=== PATIENT | male | born 1950 | race Caucasian/White ===

== ENCOUNTER → 2017-08-13 | Outpatient (CLI) | payer MEDICARE, OTHER ==
[~2017-08-13] MED LIST: ALLOPURINOL 30300 M2 PO; ASPIRIN325 PO; BYSTOLIC 5 MG5 M1 PO; FLOMAX0.4 MG PO; HYDROCHLOROTHIA25 M2 PO; IBUPROFEN 400400 M1 PO; KEFLEX500 MG PO; LIPITOR 20 MG T20 M1 PO; LISINOPRIL10 MG PO; NITROGLYCERIN0.4 MG SUBLING; NORVASC5 MG PO; PLAVIX 75 MG TA75 M1 PO; POTASSIUM20 PO
[2017-08-13 09:36] LABS: ABSOLUTE EOSINOPHILS 0.4 thou/uL (0.0-0.7); ABSOLUTE LYMPHOCYTES 1.2 thou/uL (0.8-5.3); ABSOLUTE MONOCYTES 0.5 thou/uL (0.0-1.2); ABSOLUTE NEUTROPHILS 4.2 thou/uL (1.6-8.1); BASOPHILS 0.5 %; EOSINOPHILS 5.9 %; HEMATOCRIT 42.1 % (42.0-52.0); HEMOGLOBIN 14.6 gm/dL (14.0-18.0); LYMPHOCYTES 19.1 %; MCH 29.9 pg (26.0-34.0); MCHC 34.7 g/dL (28.0-37.0); MCV 86.2 fL (80.0-100.0); MPV 7.7 fl. (7.2-11.1); NUCLEATED RBCS 0 /100WBC; PLATELET COUNT* 167 thou/uL (150-400); POLYS 66.5 %; RBC 4.88 mil/uL (4.50-6.00); RDW-CV 13.9 % (10.5-14.5); WBC 6.3 thou/uL (4.0-11.0)
[2017-08-13 10:13] LABS: ALBUMIN 3.9 g/dL (3.4-5.0); ALKALINE PHOSPHATASE 127 U/L (46-116); ANION GAP 8 mmol/L (7-16); BUN 14 mg/dL (7-18); CALCIUM 9.1 mg/dL (8.5-10.1); CHLORIDE 105 mmol/L (98-107); CHOLESTEROL 145 mg/dL (<200); CO2 29 mmol/L (21-32); CREATININE 1.1 mg/dL (0.6-1.3); GLUCOSE 100 mg/dL (70-99); HDL CHOLESTEROL 60 mg/dL (>40); LDL CHOLESTEROL 70 mg/dL (<100); POTASSIUM 4.1 mmol/L (3.5-5.1); SGOT 27 U/L (15-37); SGPT 43 U/L (30-65); SODIUM 142 mmol/L (136-145); TC:HDL 2.4 Ratio (Not establshd); TOTAL BILIRUBIN 0.5 mg/dL (<0.1-1.0); TOTAL PROTEIN 6.6 g/dL (6.4-8.2); TRIGLYCERIDE 78 mg/dL (<150); VLDL 16 mg/dL (<40)
[2017-08-13 10:15] LABS: SERUM ASSESSMENT Clear
[2017-08-14 02:11] LABS: GLYCOHEMOGLOBIN (HGB A1C) 5.3 % (4.8-5.6)
== END ==
LOC: M.LAB 09:12
PROVIDERS: Family Medicine
DX: N32.81 Overactive bladder (principal); I10 Essential (primary) hypertension; G47.33 Obstructive sleep apnea (adult) (pediatric); I25.10 Atherosclerotic heart disease of native coronary artery without angina pectoris; E78.5 Hyperlipidemia, unspecified; G45.9 Transient cerebral ischemic attack, unspecified

== ENCOUNTER 2019-05-05 20:17 | Inpatient (IN) | payer MEDICARE, OTHER ==
[~2019-05-05] VITALS: Ht 180.3 cm; Wt 49.4 kg
[~2019-05-05 20:17] MED LIST changes: -ALLOPURINOL 30300 M2 PO; +ZYLOPRIM300 MG PO
[2019-05-05 20:27] VITALS: BP 126/60
[2019-05-05 20:38] LABS: ABSOLUTE EOSINOPHILS 0.3 thou/uL (0.0-0.7); ABSOLUTE LYMPHOCYTES 1.3 thou/uL (0.8-5.3); ABSOLUTE MONOCYTES 0.5 thou/uL (0.0-1.2); ABSOLUTE NEUTROPHILS 4.1 thou/uL (1.6-8.1); BASOPHILS 0.6 %; EOSINOPHILS 4.5 %; HEMATOCRIT 32.9 % (42.0-52.0); HEMOGLOBIN 11.2 gm/dL (14.0-18.0); LYMPHOCYTES 21.1 %; MCH 30.1 pg (26.0-34.0); MCV 88.6 fL (80.0-100.0); MPV 7.8 fl. (7.2-11.1); NUCLEATED RBCS 0 /100WBC; PLATELET COUNT* 197 thou/uL (150-400); POLYS 65.8 %; RBC 3.71 mil/uL (4.50-6.00); RDW-CV 15.4 % (10.5-14.5); WBC 6.2 thou/uL (4.0-11.0)
[2019-05-05 20:47] LABS: ANION GAP 8 mmol/L (7-16); BUN 17 mg/dL (7-18); CALCIUM 8.8 mg/dL (8.5-10.1); CHLORIDE 103 mmol/L (98-107); CO2 29 mmol/L (21-32); CREATININE 1.2 mg/dL (0.6-1.3); GLUCOSE 155 mg/dL (70-99); POTASSIUM 3.4 mmol/L (3.5-5.1); SODIUM 140 mmol/L (136-145)
[2019-05-05 20:50] LABS: APTT 24.3 Seconds (25.0-31.3); PROTIME 10.3 Seconds (9.20-11.50)
[2019-05-05 20:56] LABS: ALBUMIN 3.4 g/dL (3.4-5.0); ALKALINE PHOSPHATASE 109 U/L (46-116); SGOT 23 U/L (15-37); SGPT 52 U/L (30-65); TOTAL BILIRUBIN 0.4 mg/dL (<0.1-1.0); TOTAL PROTEIN 6.3 g/dL (6.4-8.2); TROPONIN-I LEVEL <0.06 ng/mL (<0.06)
[2019-05-05] MEDS ORDERED: SERTRALINE HCL25 M1 PO (21:21)
[2019-05-05] MEDS ORDERED: NORVASC10 MG PO (21:22)
[2019-05-05] MEDS ORDERED: SINGULAIR 10 MG10 M1 PO (21:22)
[2019-05-05] MEDS ORDERED: FLOMAX0.4 MG PO (21:22)
[2019-05-05] MEDS ORDERED: FINASTERIDE5 MG PO (21:23)
[2019-05-05 22:50] LABS: URINE BILIRUBIN NEGATIVE (Negative); URINE BLOOD NEGATIVE (Negative); URINE CLARITY CLEAR; URINE COLOR YELLOW; URINE GLUCOSE-RANDOM NEGATIVE (Negative); URINE KETONES NEGATIVE (Negative); URINE LEUKOCYTES-REFLEX NEGATIVE (Negative); URINE NITRITE-REFLEX NEGATIVE (Negative); URINE PROTEIN NEGATIVE (Negative); URINE UROBILINOGEN 0.2 E.U./dl (0.2-1.0)
[2019-05-05 22:51] VITALS: BP 125/61
[2019-05-05 23:00] VITALS: BP 122/62
[2019-05-06] MEDS ORDERED: VITAMIN D1000 UNI1 PO (00:20)
[2019-05-06] MEDS ORDERED: VITAMIN B-6100 MG PO (00:23)
[2019-05-06] MEDS ORDERED: OMEPRAZOLE40 MG PO (00:26)
[2019-05-06] MEDS ORDERED: DONEPEZIL HCL 55 M1 PO (00:41)
[2019-05-06] MEDS ORDERED: STOOL SOFTENER100 MG PO (00:41)
[2019-05-06 02:37] LABS: ABSOLUTE EOSINOPHILS 0.3 thou/uL (0.0-0.7); ABSOLUTE LYMPHOCYTES 1.5 thou/uL (0.8-5.3); ABSOLUTE MONOCYTES 0.5 thou/uL (0.0-1.2); ABSOLUTE NEUTROPHILS 3.8 thou/uL (1.6-8.1); BASOPHILS 0.6 %; EOSINOPHILS 4.9 %; HEMATOCRIT 32.2 % (42.0-52.0); HEMOGLOBIN 10.8 gm/dL (14.0-18.0); MCH 29.6 pg (26.0-34.0); MCHC 33.5 g/dL (28.0-37.0); MCV 88.4 fL (80.0-100.0); MONOCYTES 8.2 %; MPV 7.5 fl. (7.2-11.1); NUCLEATED RBCS 0 /100WBC; PLATELET COUNT* 185 thou/uL (150-400); POLYS 61.3 %; RBC 3.65 mil/uL (4.50-6.00); WBC 6.2 thou/uL (4.0-11.0)
[2019-05-06 02:54] LABS: ANION GAP 8 mmol/L (7-16); BUN 15 mg/dL (7-18); CHLORIDE 105 mmol/L (98-107); CHOLESTEROL 143 mg/dL (<200); CO2 28 mmol/L (21-32); CREATININE 1.1 mg/dL (0.6-1.3); GLUCOSE 126 mg/dL (70-99); HDL CHOLESTEROL 60 mg/dL (>40); LDL CHOLESTEROL 64 mg/dL (<100); MAGNESIUM 1.9 mg/dL (1.8-2.4); POTASSIUM 3.8 mmol/L (3.5-5.1); SERUM ASSESSMENT Clear; SODIUM 141 mmol/L (136-145); TC:HDL 2.4 Ratio (Not establshd); TRIGLYCERIDE 97 mg/dL (<150); VLDL 19 mg/dL (<40)
[2019-05-06 03:56] VITALS: BP 105/60
--- NOTE | 2019-05-06 05:13 | NUR ---
RECEIVED REPORT AND ASSUMED CARE OF PATIENT FROM ER APPROX 2300. PATIENT ORIENTED TO ROOM AND CALL LIGHT. ADMISSION ASSESSMENT AND VITALS COMPLETED CHARTED, VSS. PATIENT DENIES PAIN AND DISCOMFORT. NIH IS 0. AGREES THAT SLURRED SPEECH HAS RESOLVED. PATIENT TO HAVE MRI/MRA THIS AM. EDUCATED ON PLAN OF CARE. PATIENT AND VERBALIZE UNDERSTANDING. CALL LIGHT WITHIN REACH
[2019-05-06 08:18] VITALS: BP 110/52
--- NOTE | 2019-05-06 09:38 | NUR ---
ASSUMED CARE OF PT THIS AM AROUND 0715- [facility] ORDERED, TRACING SR- UPON ASSESSMENT PT NOTED TO BE RESTING IN BED, AT SIDE- PT A&O X4, FORGETFULL- CONTINENT OF BOWEL AND BLADDER- SBA WITH TRANSFERS FOR SAFETY- LCTA, RESP EVEN AND UN-LABORED- VSS, O2 SAT 97% ON RA- ABD SOFT/OBESE/NON-TENDER, BS X4 QUADS- LAST BM REPORTED 05/05/19- IV NOTED TO RIGHT AC INTACT AND SL- NIH NOTED 0 THIS AM- MRI/MRA PLANNED THIS SHIFT- ECHO ORDERED- PT CURRENTLY UP IN BED SIDE CHAIR- DENIES ANY C/O PAIN/DISCOMFORT AT THIS TIME- CALL LIGHT AND PERSONAL BELONGINGS WITH IN REACH- HOURLY ROUNDS IN PLACE R/T SAFETY/NEEDS- ALL NEEDS MET AT THIS TIME-WCTM
--- NOTE | 2019-05-06 11:09 | EKG ---
[place] [address] ELECTROCARDIOGRAM REPORT Name: FLAKITO TAPIA Room: [address] ADM IN .R.#: [id number] Admission: 05/05/19 Attend Phys: Jordan Roth MD Discharge: Date of : 46 Report #: [id number] THIS REPORT FOR: //name// [facility] ED Test Date: 2019-05-05 Test Time: 20:24:31 Pat Name: FLAKITO TAPIA Department: Room: [facility] Gender: M Absence Management Consultant: MT : 1950 Requested By: Pepper Bland Order Number: [id number] MD: Ashish Chen Measurements Intervals [place] Rate: 76 P: 18 [place]: 192 QRS: 2 QRSD: 143 T: 16 QT: 408 QTc: 459 Interpretive Statements Sinus rhythm IVCD, consider atypical RBBB Baseline wander in lead(s) V2 Compared to ECG 02/14/2015 08:43:04 Sinus bradycardia no longer present Electronically Signed On 05-06-2019 11:09:32 CDT by Ashish Chen [email or web address] <ELECTRONICALLY SIGNED> By: Ashish Chen MD, [facility] 05/06/19 1109 23 23 Ashish Chen MD, [facility] /EPI
[2019-05-06 11:42] VITALS: BP 124/51
--- NOTE | 2019-05-06 12:52 | 2DMMODE ---
[place] [address] 2 D/M-MODE ECHOCARDIOGRAM Name: FLAKITO TAPIA Room: [address] IN [facility]#: [id number] Admission: 05/05/19 Attend Phys: Jordan Roth MD Discharge: Date of : 46 Date of Service: 05/06/19 1252 Report #: [id number] THIS REPORT FOR: //name// APPROVED REPORT Study performed: 05/06/2019 10:05:37 EXAM: Comprehensive 2D, Doppler, and color-flow Echocardiogram Patient Location: In-Patient Room #: [facility] Status: routine BSA: 2.33 HR: 71 bpm BP: 110/52 mmHg Rhythm: NSR Other Information Study Quality: Good Indications CVA/TIA Echo Enhancing Agent Indication: Rule out Shunt Agent(s) / Amount(s) Used: Agitated Saline 10 cc 2D Dimensions IVSd: 13.70 (7-11mm) LVOT Diam: 21.23 (18-24mm) LVDd: 45.32 mm PWd: 11.60 (7-11mm) Ascending Ao: 36.43 (22-36mm) LVDs: 25.53 (25-40mm) Aortic Root: 36.83 mm Volumes Left Atrial Volume (Systole) LA ESV Index: 27.90 mL/m2 Aortic Valve AoV Peak Forrest.: 1.98 m/s AO Peak Gr.: 15.68 mmHg LVOT Max P.39 mmHg AO Mean Gr.: 8.16 mmHg LVOT Mean P.30 mmHg LVOT Max V: 1.36 m/s AO V2 VTI: 38.60 cm LVOT Mean V: 0.81 m/s WALTER (VTI): 2.72 cm2 LVOT V1 VTI: 29.69 [place] [address] 2 D/M-MODE ECHOCARDIOGRAM Name: FLAKITO TAPIA Room: [address] IN [facility].#: [id number] Admission: 05/05/19 Attend Phys: Jordan Roth MD Discharge: Date of : 46 Date of Service: 05/06/19 1252 Report #: [id number] Mitral Valve E/A Ratio: 0.92 MV Decel. Time: 250.70 ms MV E Max Forrest.: 1.10 m/s MV PHT: 72.70 ms MVA (PHT): 3.03 cm2 TDI E/Lateral E': 9.17 E/Medial E': 10.00 Medial E' Forrest.: 0.11 m/s Lateral E' Forrest.: 0.12 m/s Pulmonary Valve PV Peak Forrest.: 1.19 m/s PV Peak Gr.: 5.71 mmHg Tricuspid Valve RAP Estimate: 5.00 mmHg TR Peak Gr.: 29.45 mmHg RVSP: 34.00 mmHg PA Pressure: 34.00 mmHg Left Ventricle The left ventricle is normal size. There is normal LV segmental wall motion. Mild concentric left ventricular hypertrophy. Left ventricular systolic function is normal. The left ventricular ejection fraction is within the normal range. LVEF is 60-65%. Grade I - abnormal relaxation pattern. Right Ventricle The right ventricle is normal size. The right ventricular systolic function is normal. Atria The left atrium size is normal. Interatrial septum is intact without evidence of ASD or PFO. The right atrium size is normal. Aortic Valve Mild aortic valve sclerosis. Trace aortic regurgitation. There is no aortic valvular stenosis. Mitral Valve The mitral valve is normal in structure. Trace mitral regurgitation. No evidence of mitral valve stenosis. Tricuspid Valve The tricuspid valve is normal in structure. Trace tricuspid regurgitation. [place] [address] 2 D/M-MODE ECHOCARDIOGRAM Name: WILLIEFLAKITO Gracy Room: [address]#: [id number] Admission: 05/05/19 Attend Phys: Jordan Roth MD Discharge: Date of : 46 Date of Service: 05/06/19 1252 Report #: [id number] Pulmonic Valve The pulmonary valve is normal in structure. Trace pulmonic regurgitation. Great Vessels The aortic root is normal in size. IVC is not well visualized. Pericardium There is no pericardial effusion. <Conclusion> Mild concentric left ventricular hypertrophy. LVEF is 60-65%. Mild aortic valve sclerosis. Interatrial septum is intact without evidence of ASD or PFO. <ELECTRONICALLY SIGNED> By: Ashish Chen MD, [facility] 05/06/19 1252 1252 1252 Ashish Chne MD, FACC /INF
--- NOTE | 2019-05-06 15:17 | NUR ---
Pt is A&O, Pt has dementia per . Independent, assists as needed, Pt drives short distances. Pt has a walker, but does not currently use it. No hx of HH or SNF. Supportive family. Goal [place]. Following.
[2019-05-06 15:46] VITALS: BP 127/64
--- NOTE | 2019-05-06 16:24 | NUR ---
PT CURRENTLY RESTING IN BED SIDE RECLINER, AT SIDE- CHILD SUPPORT INVESTIGATOR IN PLACE ORDERED, TRACING SR/SB- IV NOTED TO RIGHT AC INTACT AND SL- GOOD PO INTAKE NOTED THIS SHIFT- ECHO COMPLETED THIS SHIFT ORDERED, NOTED LVEF OF 60-65%- MRI NOT COMPLETED THIS SHIFT R/T MRI MACHINE BEING DOWN FOR MAINTENCE THIS SHIFT- HOURLY ROUNDS IN PLACE R/T SAFETY/NEEDS- ALL NEEDS MET AT THIS TIME-WCTM
--- NOTE | 2019-05-06 20:18 | NUR ---
CHARHOUSE WORKER TOOK PT TO MRI AT 191. PT GIVEN 2 MG VALIUM PO PRIOR TO TEST.
[2019-05-06 20:30] VITALS: BP 141/68
--- NOTE | 2019-05-06 20:31 | NUR ---
PT RETURNED FROM MRI AT THIS TIME.
[2019-05-07] VITALS: BP 152/60
[2019-05-07 04:00] VITALS: BP 163/88
[2019-05-07 04:06] LABS: GLYCOHEMOGLOBIN (HGB A1C) 5.4 % (4.8-5.6)
[2019-05-07 08:00] VITALS: BP 136/69
[2019-05-07 12:24] VITALS: BP 123/60
[2019-05-07] MEDS ORDERED: ASPIRIN81 M2 PO (12:44)
[2019-05-07 12:57] VITALS: BP 123/60
--- NOTE | 2019-05-07 15:49 | NUR ---
PT CARE ASSUMED AT APPROX 0730, FULL ASSESMENT DONE CHARTED. PT A/O X4, FORGETFUL. STEADY, UP AD TEDDY. PT USES CALL LIGHT APPROPRIATLY. VSS, SR/PVC'S ON THE TR. DISCHARGE ORDERS RECEIVED, PT AND INSTRUCTED ON MEDS AND FOLLOW UP APPTS. BOTH VERBALIZED UNDERSTANDING. PT DISCHARGED WITH , ALL BELONGINGS WITH PT.
--- NOTE | 2019-05-08 10:45 | CON ---
[facility] [address] [place] [address] CONSULTATION Name: FLAKITO TAPIA Room: [address] IN .R.#: [id number] Admission: 05/05/19 Attend Phys: Jordan Roth MD Discharge: 05/07/19 Date of : 46 Report #: [id number] THIS REPORT FOR: //name// CC: Leonard Roth DATE OF SERVICE: 05/06/2019 HISTORY OF PRESENT ILLNESS: This is a 69-year-old male patient who was admitted after an episode of speech difficulty. He could not express himself. He does not believe there was much weakness associated with this. According to him, the symptoms have resolved. This episode happened spontaneously and lasted several hours. He does have memory issues in the baseline that makes it difficult to assess him in that regard. REVIEW OF SYSTEMS: Indicates he apparently had a neuropsychological testing done recently, that was because of memory issues. He has a history of coronary artery disease and had a stent put in. He had a sinus surgery done 2 weeks ago. His Plavix was stopped at that time and is being restarted now. He had bilateral knee replaced and bilateral rotator cuff tears. He had cataract surgeries in the past. He has a diagnosis of sleep apnea. 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 He underwent treatment for 13 months, but does not know what medication he was on. He does not believe he has any symptoms in that regard now. He denies any new eye, ENT, cardiac, respiratory, GI, , musculoskeletal, constitutional, dermatological, hematological, psychiatric, throat, allergic symptom associated with present symptomatology. PAST MEDICAL HISTORY: Positive for similar spells. He was admitted to this hospital in 2014. I reviewed those records and at that time, his brain has shown atrophy and his blood vessels were small. MRI did not demonstrate any acute CVA. FAMILY HISTORY: Negative for any early age stroke. SOCIAL HISTORY: He is and his is the one who provided most of the history. He indicates he used to drink alcohol after work on a regular basis, but does not drink any alcohol every day, but still does it on occasions. He does not smoke. PHYSICAL EXAMINATION: Indicates he is alert, responsive. His memory does look poor because he has to look to his to answer many times. He does have some hesitation in speech, but he is still able to complete sentences most of the time. His cranial nerve examination appears unremarkable. Strength, sensation, reflexes and tones are symmetrical. He does not appear to have papilledema. He has no cerebellar sign. I did not make him walk. [place] [address] CONSULTATION Name: FLAKITO TAPIA Room: [address]#: [id number] Admission: 05/05/19 Attend Phys: Jordan Roth MD Discharge: 05/07/19 Date of : 46 Report #: [id number] has no edema, cyanosis or jaundice. Cardiac examinations appear unremarkable. No respiratory difficulty or rhonchi. His temperature was 97.8, pulse is 58, respirations are 18 and blood pressure is 11/52. LABORATORY DATA: He is anemic with a hemoglobin of 10.8, but his sodium and GFR is normal. He did have a CT scan of the head, which does not show any acute abnormality and it looks like he also had a CT angiogram, which demonstrated a moderate amount of stenosis, but nothing which requires intervention. The patient denies any prior history of migraine headache. IMPRESSION: This patient presents with symptoms suggestive of transient ischemic attack. However, the workup is unremarkable. His last sed rate was 72, which is high and we will repeat it. If his sed rate is high, we need to address the question of temporal arteritis. The patient's history was concerning, especially in light of prior history of tuberculous meningitis for any sequela from tuberculous meningitis, but his MRI and MRA does not show any definite abnormality in that regard. If those are excluded, we can consider the possibility of hemiplegic migraine, but presently we need to do some more workup on him to make sure there is no other etiology there. I will repeat his sed rate to see if it is high. Because of his memory issues, I will repeat his vitamin B12 and TSH. He is scheduled to get an MRI done and we will see what it shows and we will get an echocardiogram done to look for any patent foramen ovale and follow up with you. All of it was discussed with the patient and the family. <ELECTRONICALLY SIGNED> By: Marciano López MD 05/08/19 1045 [id number] López MD /nt
== END 2019-05-07 13:40 | disposition home or self-care (01) | DRG 69 ==
LOC: M.ERS 20:17 → M.2W 21:51 → M.TBA-ER 21:51 → M.2W 22:53
PROVIDERS: Personal Emergency Response Attendant; ADMIT Family Medicine
DX: G45.9 Transient cerebral ischemic attack, unspecified (principal); H53.122 Transient visual loss, left eye; I10 Essential (primary) hypertension; F03.90 Unspecified dementia, unspecified severity, without behavioral disturbance, psychotic disturbance, mood disturbance, and anxiety; M31.6 Other giant cell arteritis; G43.409 Hemiplegic migraine, not intractable, without status migrainosus; M10.9 Gout, unspecified; Z95.5 Presence of coronary angioplasty implant and graft; Z90.49 Acquired absence of other specified parts of digestive tract; Z86.73 Personal history of transient ischemic attack (TIA), and cerebral infarction without residual deficits; Z98.49 Cataract extraction status, unspecified eye; Z79.82 Long term (current) use of aspirin; Z88.0 Allergy status to penicillin; Z87.891 Personal history of nicotine dependence

== ENCOUNTER 2019-11-15 18:57 | Inpatient (IN) | payer MEDICARE, OTHER ==
[~2019-11-15] VITALS: Ht 180.3 cm; Wt 129.3 kg
[~2019-11-15 18:57] MED LIST changes: +ASPIRIN81 M2 PO; +DONEPEZIL HCL 55 M1 PO; +FINASTERIDE5 MG PO; +NORVASC10 MG PO; +OMEPRAZOLE40 MG PO; +SERTRALINE HCL25 M1 PO; +SINGULAIR 10 MG10 M1 PO; +STOOL SOFTENER100 MG PO; +VITAMIN B-6100 MG PO; +VITAMIN D1000 UNI1 PO
[2019-11-15 19:06] VITALS: BP 160/73
[2019-11-15 19:40] LABS: ABSOLUTE EOSINOPHILS 0.2 thou/uL (0.0-0.7); ABSOLUTE LYMPHOCYTES 1.2 thou/uL (0.8-5.3); ABSOLUTE MONOCYTES 0.5 thou/uL (0.0-1.2); ABSOLUTE NEUTROPHILS 5.9 thou/uL (1.6-8.1); BASOPHILS 0.3 %; EOSINOPHILS 2.6 %; HEMATOCRIT 39.8 % (42.0-52.0); HEMOGLOBIN 13.7 gm/dL (14.0-18.0); LYMPHOCYTES 15.7 %; MCHC 34.4 g/dL (28.0-37.0); MCV 84.2 fL (80.0-100.0); MONOCYTES 6.6 %; MPV 7.5 fl. (7.2-11.1); NUCLEATED RBCS 0 /100WBC; PLATELET COUNT* 183 thou/uL (150-400); POLYS 74.8 %; RBC 4.72 mil/uL (4.50-6.00); RDW-CV 15.3 % (10.5-14.5); WBC 7.9 thou/uL (4.0-11.0)
[2019-11-15 19:47] LABS: CREATININE 1.2 mg/dL (0.6-1.3); POTASSIUM 3.4 mmol/L (3.5-5.1)
[2019-11-15 19:48] LABS: APTT 24.4 Seconds (25.0-31.3); PROTIME 10.4 Seconds (9.20-11.50)
[2019-11-15 19:51] LABS: ALBUMIN 3.6 g/dL (3.4-5.0); TOTAL BILIRUBIN 0.4 mg/dL (<0.1-1.0); TOTAL PROTEIN 6.7 g/dL (6.4-8.2)
[2019-11-15 20:57] LABS: URINE BILIRUBIN NEGATIVE (Negative); URINE BLOOD NEGATIVE (Negative); URINE CLARITY CLEAR; URINE COLOR YELLOW; URINE GLUCOSE-RANDOM NEGATIVE (Negative); URINE KETONES NEGATIVE (Negative); URINE LEUKOCYTES-REFLEX NEGATIVE (Negative); URINE NITRITE-REFLEX NEGATIVE (Negative); URINE PROTEIN NEGATIVE (Negative); URINE SPECIFIC GRAVITY 1.025 (1.005-1.030); URINE UROBILINOGEN 0.2 E.U./dl (0.2-1.0)
[2019-11-15 21:50] VITALS: BP 155/75
[2019-11-15 22:00] VITALS: BP 159/75
[2019-11-16 04:24] VITALS: BP 134/56
[2019-11-16 08:00] VITALS: BP 138/70
--- NOTE | 2019-11-16 11:12 | EKG ---
[place] [address] ELECTROCARDIOGRAM REPORT Name: WILLIEFLAKITO D Room: [address] ADM IN M.R.#: [id number] Admission: 11/15/19 Attend Phys: Ruddy cruz Sa Discharge: Date of : 46 Date of Service: 11/15/191914 Report #: [id number] THIS REPORT FOR: //name// [facility] ED Test Date: 2019-11-15 Test Time: 19:15:02 Pat Name: FLAKITO TAPIA Department: Room: [facility] Gender: M Epic Specialist: RAFIQ : 1950 Requested By: Pepper Bland Order Number: [id number] MD: Ashish Chen Measurements Intervals [place] Rate: 76 P: 23 [place]: 181 QRS: -15 QRSD: 151 T: 2 QT: 404 QTc: 455 Interpretive Statements Sinus rhythm Right bundle branch block Compared to ECG 05/05/2019 20:24:31 No significant changes Electronically Signed On 11-16-2019 11:11:14 MAILING CLERK by Ahsish Chen [email or web address] <ELECTRONICALLY SIGNED> By: Ashish Chen MD, FACC 11/16/19 1111 14 Ashish Chen MD, FAC /EPI
[2019-11-16 17:00] VITALS: BP 137/65
[2019-11-16 20:00] VITALS: BP 147/61
[2019-11-17] VITALS (7 sets, daily range): BP systolic 110–155; BP diastolic 65–75
--- NOTE | 2019-11-17 15:55 | NUR ---
cm completed initial assessment to discuss d/c planning. pt was out of room having MRI per pt's , migue. Migue stated pt lives at home, and he drives to familiar places, such as gym and diner. pt has progressive memory loss, "some days are worst than others." pt children live in close proximity so parents have good support. pt has no dme. pt has no hx w/hh or snf. cm to cont to follow to assist as needed.
--- NOTE | 2019-11-17 16:48 | NUR ---
PT IS A/O X4 BUT FORGETFUL AT TIMES.VSS.BRICKMASON SUPERVISOR IN PLACE.NO C/O PAIN.MRI COMPLETED.PT WORKED WITH PHYSICAL THERAPY AND ORTHOSTATICS COMPELTED.PT AND INFORMED OF PLAN OF CARE AND COMMUNICATES UNDERSTANDING.HOURLY ROUNDING COMPLETED FOR PT SAFETY.CALL LIGHT AND FALL PRECAUTIONS IN PLACE.WILL CONTINUE TO MONITOR FOR DURATION OF SHIFT.
[2019-11-18] VITALS: BP 136/62
[2019-11-18 04:00] VITALS: BP 156/78
[2019-11-18 04:38] LABS: HEMATOCRIT 38.9 % (42.0-52.0); HEMOGLOBIN 13.5 gm/dL (14.0-18.0); MCH 28.8 pg (26.0-34.0); MCHC 34.6 g/dL (28.0-37.0); MCV 83.4 fL (80.0-100.0); MPV 7.6 fl. (7.2-11.1); RBC 4.67 mil/uL (4.50-6.00); WBC 7.9 thou/uL (4.0-11.0)
[2019-11-18 05:17] LABS: ALBUMIN 3.1 g/dL (3.4-5.0); CALCIUM 8.9 mg/dL (8.5-10.1); CREATININE 0.9 mg/dL (0.6-1.3); MAGNESIUM 1.9 mg/dL (1.8-2.4); PHOSPHORUS* 2.9 mg/dL (2.5-4.9); POTASSIUM 3.5 mmol/L (3.5-5.1)
[2019-11-18 08:00] VITALS: BP 143/71
[2019-11-18 10:54] VITALS: BP 143/71
[2019-11-18 11:09] LABS: ANA INTERPRETATION Negative (())
[2019-11-18 11:13] VITALS: BP 140/67
--- NOTE | 2019-11-18 11:29 | NUR ---
ORDERS NOTED OF DC WITH HH AND WALKER. MET WITH PT AND FAMILY TO DISCUSS OPTIONS. HAD NO PREFERENCE, SET UP VISIT WITH [facility] TO DISCUSS HH. ORDERED WALKER TO BE DISPENSED BY PROVIDER PLUS PRIOR TO DC, OK'D BY RAJI/LENNY. FAXED ORDER TO HER AND PLACED ON CHART. ORDERS FAXED TO [facility] AL[facility]. PT HAPPY ABOUT GOING HOME
== END 2019-11-18 13:15 | disposition home health service (06) | DRG 92 ==
LOC: M.ERS 18:57 → M.2W 20:49 → M.TBA-ER 20:49 → M.2W 23:08
PROVIDERS: Personal Emergency Response Attendant; Psychiatry & Neurology Neurology; ADMIT Family Medicine
DX: R27.0 Ataxia, unspecified (principal); G95.9 Disease of spinal cord, unspecified; F03.90 Unspecified dementia, unspecified severity, without behavioral disturbance, psychotic disturbance, mood disturbance, and anxiety; I25.10 Atherosclerotic heart disease of native coronary artery without angina pectoris; N31.9 Neuromuscular dysfunction of bladder, unspecified; N39.498 Other specified urinary incontinence; K43.9 Ventral hernia without obstruction or gangrene; K42.9 Umbilical hernia without obstruction or gangrene; G47.30 Sleep apnea, unspecified; I10 Essential (primary) hypertension; M10.9 Gout, unspecified; Z95.5 Presence of coronary angioplasty implant and graft; Z90.49 Acquired absence of other specified parts of digestive tract; Z79.82 Long term (current) use of aspirin; Z79.891 Long term (current) use of opiate analgesic; Z79.899 Other long term (current) drug therapy; Z88.0 Allergy status to penicillin; Z88.8 Allergy status to other drugs, medicaments and biological substances